=== PATIENT | male | born 1950 | race Asian ===

== ENCOUNTER 2017-07-16 20:59 | Inpatient (IN) | payer OTHER ==
[2017-07-16] MEDS ORDERED: Sodium Chloride 0.9% 1,000 ML IV ONE ×2 (21:20→23:31)
[2017-07-16] MEDS ORDERED: HYDROmorphone 1 mg/mL 1mL Syr IVP STA (21:21)
[2017-07-16] MEDS ORDERED: HYDROmorphone 1 mg/mL 1mL Syr ONE (21:24)
--- NOTE | 2017-07-16 21:27 | ED Physician Chart ---
ED Chief Complaint/HPI - Patient Information Date Seen:: 07/16/17 Time Seen:: 21:10 Chief Complaint:: abdominal pain History of Present Illness:: Patient developed epigastric pain at 10 AM this morning. He is nauseated but had no vomiting. He had one-time watery diarrhea. No chills, fever, dysuria. Allergies:: Allergies Allergy/AdvReac Type Severity Reaction Status Date / Time naproxen Allergy Verified 07/16/17 21:05 Vitals:: Vital Signs - 8 hr 07/16/17 21:00 Temp 98.6 F HR 103 RR 20 BP 155/71 O2 Sat % 100 Historian:: Patient Review:: Nurse's Note Reviewed ED Review of Systems - Review of Systems General/Constitutional: No fever, No chills Skin: No skin lesions Head: No headache Eyes: No loss of vision ENT: No earache Neck: No neck pain Cardio Vascular: No chest pain Pulmonary: No SOB, No cough GI: Nausea, Diarrhea, Pain G/U: No dysuria Musculoskeletal: No bone or joint pain Endocrine: No polyuria Hematopoietic: No bruising Allergic/Immuno: No urticaria Neurological: No syncope ED Past Medical History - Past Medical History Past Medical History: HTN Family History: Diabetes Melitus, HTN Social History: Other (quit smoking 15 years ago; used to drink alcohol but no longer does) Surgical History: None Psychiatricy History: None Medication: Reviewed Family Medical History - Family Member Mother History Unknown: Yes Ethnicity: Non- ED Physical Exam - Physical Examination General/Constitutional: Well-developed, well-nourished, Alert, No distress Head: Atraumatic Eyes: Lids, conjuctiva normal, PERRL Skin: Nl inspection, No rash ENMT: External ears, nose nl, TM canals nl, Nasal exam nl, Lips, teeth, gums nl Neck: No nuchal rigidity Respiratory: Nl effort/Exclusion, Clear to Auscultation Cardio Vascular: RRR, No murmur, gallop, rubs, NL S1 S2 GI: No organomegaly, No hernia, Normal BS's Other GI comments:: Epigastric tenderness Extremities: Normal digits & nails Neuro/Psych: No focal deficits Misc: Normal back ED Labs/Radiology/EKG Results - Lab Results Results: Laboratory Results - last 24 hr 07/16/17 07/16/1718 21:25 21:39 21:39 WBC 4.9 RBC 4.31 Hgb 12.9 Hct 39.0 L MCV 90.4 MCH 30.0 MCHC Differential 33.2 RDW 12.2 Plt Count 160 MPV 7.2 Neutrophils % 88.3 H Lymphocytes % 9.9 L Monocytes % 0.4 L Eosinophils % 0.2 Basophils % 1.2 Sodium 127 L Potassium 3.6 Chloride 98 Carbon Dioxide 21.6 Anion Gap 11.0 BUN 14 Creatinine 0.8 Est GFR ( Amer) > 60.0 Est GFR (Non-Af Amer) > 60.0 BUN/Creatinine Ratio 17.5 Glucose 147 H Calcium 8.2 L Magnesium Lipase 20 Urine Source RANDOM Urine Color YELLOW Urine Clarity CLEAR Urine pH 5.5 Ur Specific [place] >= 1.030 Urine Protein TRACE Urine Glucose (UA) NEGATIVE Urine Ketones NEGATIVE Urine Blood SMALL H Urine Nitrate NEGATIVE Urine Bilirubin NEGATIVE Urine Urobilinogen 0.2 Ur Leukocyte Esterase NEGATIVE Urine RBC 5-10 H Urine WBC NONE SEEN Ur Epithelial Cells NONE SEEN Urine Bacteria NONE SEEN 07/16/17 21:39 WBC RBC Hgb Hct MCV MCH MCHC Differential RDW Plt Count MPV Neutrophils % Lymphocytes % Monocytes % Eosinophils % Basophils % Sodium Potassium Chloride Carbon Dioxide Anion Gap BUN Creatinine Est GFR ( Amer) Est GFR (Non-Af Amer) BUN/Creatinine Ratio Glucose Calcium Magnesium 1.7 L Lipase Urine Source Urine Color Urine Clarity Urine pH Ur Specific [place] Urine Protein Urine Glucose (UA) Urine Ketones Urine Blood Urine Nitrate Urine Bilirubin Urine Urobilinogen Ur Leukocyte Esterase Urine RBC Urine WBC Ur Epithelial Cells Urine Bacteria - Radiology Results Results: CT scan showed severely distended stomach with food content, severely distended cecum, ileus, possible partial small bowel obstruction - EKG Interpretations Rate & Rhythm: normal sinus rhythm with a rate of 99 [place]: normal ED Assessment - Assessment General Assessment: Abdominal pain is now improved; abdominal exam revealed the hyperactive bowel sounds and epigastric tenderness ED Septic Shock - . Is Septic Shock (SBP<90, OR Lactate>4 mmol\L) present?: No - <6hrs of presentation: Vital Signs: Vital Signs - 8 hr 07/16/17 21:00 Temp 98.6 F HR 103 RR 20 BP 155/71 O2 Sat % 100 ED Reassessment (Disposition) - Reassessment Reassessment:: I spoke to Dr. Regalado at about [address] Don Waldron at 2335. Reassessment Condition:: Improved - Diagnosis Diagnosis:: Hyponatremia; hypomagnesemia, possible partial small bowel obstruction - Patient Disposition Admitted to:: Med/Surg Condition at Disposition:: Stable, Improved
[2017-07-16 21:46] LABS: % BASOPHILS 1.2 % (0.0-2.0); % EOSINOPHILS 0.2 % (0.0-5.0); % LYMPHOCYTES 9.9 % (20.0-50.0); % MONOCYTES 0.4 % (2.0-10.0); % NEUTROPHILS 88.3 % (40.0-80.0); BASOPHILE ABSOLUTE 0.1 Th/cumm (0-0.2); HEMOGLOBIN 12.9 gm/dL (12-16); LYMPHOCYTE ABSOLUTE 0.5 Th/cmm (1.5-3.0); MEAN CELL VOLUME 90.4 fl (80-99); MEAN CORPUSCULAR HGB CONC 33.2 pg (28.0-36.0); MEAN PLATELET VOLUME 7.2 fl; NEUTROPHILE ABSOLUTE 4.3 Th/cmm (1.8-8.0); PLATELET COUNT 160 Th/cmm (150-400); RED BLOOD COUNT 4.31 Mil/cmm (4.30-5.70); RED CELL DISTRIBUTION WIDTH 12.2 % (11.5-20.0); WHITE BLOOD COUNT 4.9 Th/cmm (4.8-10.8)
[2017-07-16 22:01] LABS: BUN - UREA NITROGEN 14 mg/dL (7-25); CALCIUM SERUM 8.2 mg/dL (8.6-10.3); CARBON DIOXIDE 21.6 mEq/L (21.0-31.0); CHLORIDE 98 mEq/L (98-107); CREATININE - SERUM 0.8 mg/dL (0.7-1.3); GFR AFRICAN-AMERICAN > 60.0 ml/min (>90); GFR NON AFRICAN-AMERICAN > 60.0 ml/min; GLUCOSE 147 mg/dL (70-105); LIPASE 20 U/L (11-82); POTASSIUM SERUM 3.6 mEq/L (3.5-5.1); SODIUM SERUM 127 mEq/L (136-145)
[2017-07-16 22:20] LABS: URINE MICROSCOPIC INDICATED? YES; URINE SOURCE RANDOM
[2017-07-16 22:23] LABS: URINE BILIRUBIN NEGATIVE (NEGATIVE); URINE BLOOD SMALL (NEGATIVE); URINE CLARITY CLEAR (CLEAR); URINE COLOR YELLOW; URINE GLUCOSE (UA) NEGATIVE (NEGATIVE); URINE KETONE NEGATIVE (NEGATIVE); URINE LEUKOCYTE ESTERASE NEGATIVE (NEGATIVE); URINE NITRATE NEGATIVE (NEGATIVE); URINE PH 5.5 (4.6 - 8.0); URINE PROTEIN TRACE mg/dL (NEGATIVE); URINE UROBILINOGEN 0.2 E.U./dL (0.2 - 1.0)
[2017-07-16 22:25] LABS: URINE BACTERIA NONE SEEN /hpf (NONE SEEN); URINE EPITHELIAL CELLS NONE SEEN /lpf (FEW); URINE WBC NONE SEEN /hpf (0-5)
[2017-07-16] MEDS ORDERED: 0.9% NS w/20 mEq KCL 1,000 ML IV SCH (23:34)
[2017-07-17] MEDS: D5-0.9%NS 1,000 ML IV SCH ×2 (01:12→21:06)
[2017-07-17 01:25] VITALS: BP 133/77
[2017-07-17 06:08] LABS: % BASOPHILS 0.3 % (0.0-2.0); % EOSINOPHILS 0.9 % (0.0-5.0); % LYMPHOCYTES 9.4 % (20.0-50.0); % NEUTROPHILS 85.4 % (40.0-80.0); HEMATOCRIT 37.9 % (41.0-60); HEMOGLOBIN 12.3 gm/dL (12-16); LYMPHOCYTE ABSOLUTE 0.4 Th/cmm (1.5-3.0); MEAN CELL VOLUME 90.1 fl (80-99); MEAN CORPUSCULAR HEMOGLOBIN 29.2 pg (26.0-30.0); MEAN CORPUSCULAR HGB CONC 32.5 pg (28.0-36.0); MEAN PLATELET VOLUME 7.9 fl; MONOCYTE ABSOLUTE 0.2 Th/cmm (0.3-1.0); NEUTROPHILE ABSOLUTE 3.5 Th/cmm (1.8-8.0); PLATELET COUNT 138 Th/cmm (150-400); RED BLOOD COUNT 4.21 Mil/cmm (4.30-5.70); RED CELL DISTRIBUTION WIDTH 12.7 % (11.5-20.0); WHITE BLOOD COUNT 4.1 Th/cmm (4.8-10.8)
[2017-07-17 06:16] LABS: ALB/GLOB RATIO 1.3 (1.0-1.8); ALBUMIN 3.8 gm/dL (4.2-5.5); ALKALINE PHOSPHATASE 48 U/L (34-104); ANION GAP 11.8 (7.0-16.0); BILIRUBIN,TOTAL 0.3 mg/dL (0.3-1.0); BUN - UREA NITROGEN 11 mg/dL (7-25); CALCIUM SERUM 8.2 mg/dL (8.6-10.3); CARBON DIOXIDE 21.9 mEq/L (21.0-31.0); CHLORIDE 101 mEq/L (98-107); CREATININE - SERUM 0.8 mg/dL (0.7-1.3); GFR AFRICAN-AMERICAN > 60.0 ml/min (>90); GFR NON AFRICAN-AMERICAN > 60.0 ml/min; GLUCOSE 139 mg/dL (70-105); POTASSIUM SERUM 3.7 mEq/L (3.5-5.1); SGOT 44 U/L (13-39); SGPT/ALT 41 U/L (7-52); SODIUM SERUM 131 mEq/L (136-145); TOTAL PROTEIN,SERUM 6.7 gm/dL (6.0-8.3)
--- NOTE | 2017-07-17 07:37 | Diagnostic Imaging Report ---
CT scan abdomen and pelvis without intravenous contrast HISTORY: Pain Total DLP equals 1046 CTDI equals 11.9 Axial sections were obtained from the xiphoid process down to the pubic symphysis. The liver exhibits a homogeneous parenchyma. No focal lesions. The spleen appears normal. There is a severely distended/dilated stomach with intraluminal debris. Several mildly dilated loops of small bowel are noted. No definite focal abnormalities seen within the pancreas. The exam of the right kidney demonstrates a 4.0 cm well-circumscribed hypodense lesion consistent with a cyst noted in the medullary region and upper pole. No hydronephrosis. The left kidney appears normal. Mild atherosclerotic calcification noted throughout the abdominal aorta and iliac arteries. There is a rather markedly distended stool-filled cecum and ascending colon (8.5 cm diameter). No definite abnormality seen in the region of the appendix. The pelvis demonstrates preservation of normal fat planes. No abnormal soft tissue masses or abnormal fluid collections. Degenerative changes seen within the spine. IMPRESSION: 1. Pronounced gastric dilatation associated with intraluminal food/debris. Significance should be correlated clinically. 2. Dilated stool-filled cecum and ascending colon with with several mildly dilated loops of small bowel. The findings should be correlated clinically. 3. Right renal cysts 4. Atherosclerotic vascular changes
--- NOTE | 2017-07-17 08:05 | History and Physical ---
History of Present Illness - HPI Chief Complaint: Abdominal Pain HPI: 66 y/o male who presents with epigastric pain pain at 10 AM this morning. He is nauseated but had no vomiting. He had one-time watery diarrhea. No chills, fever, dysuria. Patient states that he had a watery stool one day prior to admission. - Past Medical History Past Medical History: HTN Family History: Diabetes Melitus, HTN Social History: Other (quit smoking 15 years ago; used to drink alcohol but no longer does) Surgical History: None Psychiatricy History: None Medication: Reviewed Patient initial labwork revealed - Lab Results Results: Laboratory Results - last 24 hr 07/16/17 07/16/17 07/16/17 21:25 21:39 21:39 WBC 4.9 RBC 4.31 Hgb 12.9 Hct 39.0 L MCV 90.4 MCH 30.0 MCHC Differential 33.2 RDW 12.2 Plt Count 160 MPV 7.2 Neutrophils % 88.3 H Lymphocytes % 9.9 L Monocytes % 0.4 L Eosinophils % 0.2 Basophils % 1.2 Sodium 127 L Potassium 3.6 Chloride 98 Carbon Dioxide 21.6 Anion Gap 11.0 BUN 14 Creatinine 0.8 Est GFR ( Amer) > 60.0 Est GFR (Non-Af Amer) > 60.0 BUN/Creatinine Ratio 17.5 Glucose 147 H Calcium 8.2 L Magnesium Lipase 20 Urine Source RANDOM Urine Color YELLOW Urine Clarity CLEAR Urine pH 5.5 Ur Specific [place] >= 1.030 Urine Protein TRACE Urine Glucose (UA) NEGATIVE Urine Ketones NEGATIVE Urine Blood SMALL H Urine Nitrate NEGATIVE Urine Bilirubin NEGATIVE Urine Urobilinogen 0.2 Ur Leukocyte Esterase NEGATIVE Urine RBC 5-10 H Urine WBC NONE SEEN Ur Epithelial Cells NONE SEEN Urine Bacteria NONE SEEN 07/16/17 21:39 WBC RBC Hgb Hct MCV MCH MCHC Differential RDW Plt Count MPV Neutrophils % Lymphocytes % Monocytes % Eosinophils % Basophils % Sodium Potassium Chloride Carbon Dioxide Anion Gap BUN Creatinine Est GFR ( Amer) Est GFR (Non-Af Amer) BUN/Creatinine Ratio Glucose Calcium Magnesium 1.7 L Lipase Urine Source Urine Color Urine Clarity Urine pH Ur Specific [place] Urine Protein Urine Glucose (UA) Urine Ketones Urine Blood Urine Nitrate Urine Bilirubin Urine Urobilinogen Ur Leukocyte Esterase Urine RBC Urine WBC Ur Epithelial Cells Urine Bacteria CT scan showed severely distended stomach with food content, severely distended cecum, ileus, possible partial small bowel obstruction Patient subsequently admitted for further evaluation and treatment. Vital Signs: Last Vital Signs Temp 99.1 F 07/17/17 07:54 Pulse 75 07/17/17 07:54 Resp 18 07/17/17 07:54 BP 133/65 07/17/17 07:54 Pulse Ox 96 07/17/17 07:54 Past Medical History Cardiovascular: Report: HTN, Hyperlipidemia Pulmonary: Report: No Pertinent Hx SUPERVISOR DISPLAY FABRICATION: Report: No Pertinent Hx GI: Report: No Pertinent Hx Psych: Report: No Pertinent Hx Musculoskeletal: Report: No Pertinent Hx Rheumatologic: Report: No pertinent Hx Infectious Disease: Report: No Pertinent Hx Renal/: Report: No Pertinent Hx Endocrine: Report: Diabetes Dermatology: Report: No Pertinent Hx - Past Surgical History Past Surgical History: No pertinent Hx Family Medical History - Family Member Mother History Unknown: Yes Ethnicity: Non- Social History Smoke: # pack years (15 packed years) Alcohol: None Drugs: None Lives: Alone - Medications Home Medications: Home Medication Medication Instructions Recorded Type Lisinopril 5 mg PO DAILY 07/16/17 History Simvastatin [Zocor*] 5 mg PO DAILY 07/16/17 History metFORMIN [Glucophage] 500 mg PO BID 07/16/17 History - Allergies Allergies/Adverse Reactions: Allergies Allergy/AdvReac Type Severity Reaction Status Date / Time naproxen Allergy Verified 07/16/17 21:05 Review of Systems - Review of Systems Constitutional: Report: No Significant Eyes: Report: No Significant ENT: Report: No Significant Respiratory: Report: No Significant Cardiovascular: Report: No Significant Gastrointestinal: Report: Nausea, Vomiting, Abdominal Pain Genitourinary: Report: No Significant Musculoskeletal: Report: No Significant Skin: Report: No Significant Neurological: Report: No Significant Physical Exam - Physical Exam HEENT: Report: Ears Nose Throat within normal limits, Pharnyx within normal limits Neck: Report: Within normal limits Cardiovascular Systems: Report: +s1/s2 noted, Regular, Rate and Rhythm Respiratory: Report: Breath Sounds are within normal limits, Clear to Auscultation of lung porter Abdomen: Report: Non-tender to palpation Back: Report: Inspection of back is within normal limits. Extremities: Report: Non-tender to palpation. Skin: Report: Color of skin is within normal limits Neuro/Psych: Report: Mood affect is within normal limits, A+Ox3, CN II-XII intact - Lab Results All Lab Results last 24 hours: Laboratory Results - last 24 hr 07/17/17 07/17/17 07/17/17 05:04 05:04 05:04 WBC 4.1 L RBC 4.21 L Hgb 12.3 Hct 37.9 L MCV 90.1 MCH 29.2 MCHC Differential 32.5 RDW 12.7 Plt Count 138 L MPV 7.9 Neutrophils % 85.4 H Lymphocytes % 9.4 L Monocytes % 4.0 Eosinophils % 0.9 Basophils % 0.3 Sodium 131 L Potassium 3.7 Chloride 101 Carbon Dioxide 21.9 Anion Gap 11.8 BUN 11 Creatinine 0.8 Est GFR ( Amer) > 60.0 Est GFR (Non-Af Amer) > 60.0 BUN/Creatinine Ratio 13.8 Glucose 139 H POC Glucose Calcium 8.2 L Magnesium 2.0 Total Bilirubin 0.3 AST 44 H ALT 41 Alkaline Phosphatase 48 Total Protein 6.7 Albumin 3.8 L Globulin 2.9 Albumin/Globulin Ratio 1.3 07/17/17 05:48 WBC RBC Hgb Hct MCV MCH MCHC Differential RDW Plt Count MPV Neutrophils % Lymphocytes % Monocytes % Eosinophils % Basophils % Sodium Potassium Chloride Carbon Dioxide Anion Gap BUN Creatinine Est GFR ( Amer) Est GFR (Non-Af Amer) BUN/Creatinine Ratio Glucose POC Glucose 130 H Calcium Magnesium Total Bilirubin AST ALT Alkaline Phosphatase Total Protein Albumin Globulin Albumin/Globulin Ratio - Assessment Assessment: abdominal pain SBO DM Hyperlipidemia HTN Hyponatremia Hypomagnesemia - Plan Plan: keep NPO IV fluids GI consult Dr Pratt Surgical Consult Dr. Regalado Continue IV pain meds Zofran IV PRN
[2017-07-17] MEDS ORDERED: HYDROmorphone 1 mg/mL 1mL Syr IVP PRN (08:06)
[2017-07-17] MEDS ORDERED: Diatrizoate Meglumine/Diatri 30 mL Sol PO ONE ×2 (09:04→09:30)
--- NOTE | 2017-07-17 09:05 | General Progress Note ---
Subjective - Review of Systems Service Date: 07/17/17 Events since last encounter: chart reviewed UGI series ordered Objective - Results Result Diagrams: 07/17/17 05:04 07/17/17 05:04 Recent Labs: Laboratory Last Values WBC 4.1 Th/cmm (4.8-10.8) L 07/17/17 05:04 RBC 4.21 Mil/cmm (4.30-5.70) L 07/17/17 05:04 Hgb 12.3 gm/dL (12-16) 07/17/17 05:04 Hct 37.9 % (41.0-60) L 07/17/17 05:04 MCV 90.1 fl (80-99) 07/17/17 05:04 MCH 29.2 pg (26.0-30.0) 07/17/17 05:04 MCHC Differential 32.5 pg (28.0-36.0) 07/17/17 05:04 RDW 12.7 % (11.5-20.0) 07/17/17 05:04 Plt Count 138 Th/cmm (150-400) L 07/17/17 05:04 MPV 7.9 fl 07/17/17 05:04 Neutrophils % 85.4 % (40.0-80.0) H 07/17/17 05:04 Lymphocytes % 9.4 % (20.0-50.0) L 07/17/17 05:04 Monocytes % 4.0 % (2.0-10.0) 07/17/17 05:04 Eosinophils % 0.9 % (0.0-5.0) 07/17/17 05:04 Basophils % 0.3 % (0.0-2.0) 07/17/17 05:04 Sodium 131 mEq/L (136-145) L 07/17/17 05:04 Potassium 3.7 mEq/L (3.5-5.1) 07/17/17 05:04 Chloride 101 mEq/L (98-107) 07/17/17 05:04 Carbon Dioxide 21.9 mEq/L (21.0-31.0) 07/17/17 05:04 Anion Gap 11.8 (7.0-16.0) 07/17/17 05:04 BUN 11 mg/dL (7-25) 07/17/17 05:04 Creatinine 0.8 mg/dL (0.7-1.3) 07/17/17 05:04 Est GFR ( Amer) > 60.0 ml/min (>90) 07/17/17 05:04 Est GFR (Non-Af Amer) > 60.0 ml/min 07/17/17 05:04 BUN/Creatinine Ratio 13.8 07/17/17 05:04 Glucose 139 mg/dL (70-105) H 07/17/17 05:04 POC Glucose 130 MG/DL (70 - 105) H 07/17/17 05:48 Calcium 8.2 mg/dL (8.6-10.3) L 07/17/17 05:04 Magnesium 2.0 mg/dL (1.9-2.7) 07/17/17 05:04 Total Bilirubin 0.3 mg/dL (0.3-1.0) 07/17/17 05:04 AST 44 U/L (13-39) H 07/17/17 05:04 ALT 41 U/L (7-52) 07/17/17 05:04 Alkaline Phosphatase 48 U/L (34-104) 07/17/17 05:04 Total Protein 6.7 gm/dL (6.0-8.3) 07/17/17 05:04 Albumin 3.8 gm/dL (4.2-5.5) L 07/17/17 05:04 Globulin 2.9 gm/dL 07/17/17 05:04 Albumin/Globulin Ratio 1.3 (1.0-1.8) 07/17/17 05:04 Lipase 20 U/L (11-82) 07/16/17 21:39 Urine Source RANDOM 07/16/17 21:25 Urine Color YELLOW 07/16/17 21:25 Urine Clarity CLEAR (CLEAR) 07/16/17 21:25 Urine pH 5.5 (4.6 - 8.0) 07/16/17 21:25 Ur Specific [place] >= 1.030 (1.005-1.030) 07/16/17 21:25 Urine Protein TRACE mg/dL (NEGATIVE) 07/16/17 21:25 Urine Glucose (UA) NEGATIVE mg/dL (NEGATIVE) 07/16/17 21:25 Urine Ketones NEGATIVE mg/dL (NEGATIVE) 07/16/17 21:25 Urine Blood SMALL (NEGATIVE) H 07/16/17 21:25 Urine Nitrate NEGATIVE (NEGATIVE) 07/16/17 21:25 Urine Bilirubin NEGATIVE (NEGATIVE) 07/16/17 21:25 Urine Urobilinogen 0.2 E.U./dL (0.2 - 1.0) 07/16/17 21:25 Ur Leukocyte Esterase NEGATIVE (NEGATIVE) 07/16/17 21:25 Urine RBC 5-10 /hpf (0-5) H 07/16/17 21:25 Urine WBC NONE SEEN /hpf (0-5) 07/16/17 21:25 Ur Epithelial Cells NONE SEEN /lpf (FEW) 07/16/17 21:25 Urine Bacteria NONE SEEN /hpf (NONE SEEN) 07/16/17 21:25 - Physical Exam Vitals and I&O: Vital Signs Temp 99.1 F 07/17/17 07:54 Pulse 75 07/17/17 07:54 Resp 18 07/17/17 07:54 BP 133/65 07/17/17 07:54 Pulse Ox 96 07/17/17 07:54 Intake & Output 07/16/17 07/17/17 07/17/17 18:59 06:59 18:59 Weight (lbs) 83.149 kg Other: # Voids 2 Weight Source Bedscale Active Medications: Current Medications Enalaprilat (Vasotec) 1.25 mg IVP Q6HR [facility] Stop: 09/15/17 11:59 Hydromorphone HCl (Dilaudid) 1 mg IVP Q4HR PRN PRN Reason: Abdominal Pain Stop: 09/15/17 08:05 Dextrose/Sodium Chloride (D5-0.9%Ns) 1,000 mls @ 70 mls/hr IV .[id number] [facility] Stop: 09/15/17 01:05 Last Admin: 07/17/17 01:12 Dose: 70 mls/hr Insulin Aspart (Novolog Insulin Sliding Scale) 0 units SUBQ ACHS ROSITA PRN Reason: Protocol Stop: 09/15/17 07:29 Ondansetron HCl (Zofran) 4 mg IV Q6H PRN PRN Reason: Nausea / Vomiting Stop: 09/15/17 08:05
[2017-07-17] MEDS: INSULIN ASPART SLIDING SCALE 100 UNITS/ML UNIT SUBQ SCH ×4 (09:55→21:12)
--- NOTE | 2017-07-17 11:47 | Diagnostic Imaging Report ---
Small bowel follow-through HISTORY: Abdominal distention, pain Water-soluble contrast passed freely from the stomach into the small bowel. There is a normal small bowel caliber and mucosal fold pattern. No focal abnormalities. There is normal transit of contrast from the small bowel into the colon. No evidence of any extrinsic masses. IMPRESSION: Negative examination. No evidence of obstruction.
--- NOTE | 2017-07-17 13:01 | Diagnostic Imaging Report ---
Upper GI series HISTORY: Pain, abdominal distention The exam of the thoracic esophagus demonstrates a normal caliber. No intraluminal filling defects are seen. No hiatal hernia identified. The stomach exhibits a normal contour. Views are limited due to difficulty in patient positioning and mobility. No definite focal abnormalities. There is free flow of contrast from the stomach into the small bowel. IMPRESSION: 1. Negative examination
--- NOTE | 2017-07-17 22:46 | Consultation ---
DATE OF CONSULTATION: 07/17/2017 REASON FOR CONSULTATION: Abdominal pain, nausea, vomiting, diarrhea. HISTORY OF PRESENT ILLNESS: This consult was obtained through the courtesy of Dr. Waldron for this 66-year-old with diabetes, hypertension and hyperlipidemia, admitted to the hospital for abdominal pain, nausea and vomiting. When he came, he had a CAT scan, which showed distended abdomen, possible obstruction and some debris in the stomach. He had an upper GI, which is negative and then had small-bowel follow-through, negative. Now, feels a little bit better, but the pain still comes and goes. He is having still several bowel movements, but this is following the small bowel x-rays. The patient denies any weight loss. No bleeding. PAST MEDICAL HISTORY: Diabetes, hypertension and hyperlipidemia. PAST SURGICAL HISTORY: Negative. SOCIAL HISTORY: Ex-smoker, quit years ago, ex-alcoholic, non-IV drug abuser. FAMILY HISTORY: Noncontributory. ALLERGIES: NAPROSYN. MEDICATIONS: The patient is started on Vasotec, Dilaudid, NovoLog and Zofran. REVIEW OF SYSTEMS: No weight loss. He has diarrhea. No constipation. He has abdominal pain. No bleeding. He has not had ever endoscopy or colonoscopy. PHYSICAL EXAMINATION: GENERAL: The patient is awake, oriented to self, place, and time, in mild distress. VITAL SIGNS: Blood pressure is 119/62, heart rate 76, respiratory rate 18 and temperature is 98.5. HEAD AND NECK: Pupils reactive to light. Extraocular muscles intact. Sclerae are anicteric. Conjunctivae not pale. Oral cavity, no lesion. NECK: Supple. No jugular venous distention, no carotid lymph node. CHEST: Good respiratory movements. LUNGS: Clear to auscultation. CARDIOVASCULAR SYSTEM: Regular rate and rhythm. No murmur or gallop. ABDOMEN: Soft, positive bowel sounds. Diffusely tender. EXTREMITIES: Lower extremities, no edema. CENTRAL NERVOUS SYSTEM: Nonfocal. LABORATORY DATA: White count 4.1, H and H are 12.3 and 37.9 with platelets of 138, AST is 44. Rest of liver enzymes normal. Albumin is 3.8. UA has small amount of blood and 5-10 rbc's. IMPRESSION: A 66-year-old with abdominal pain and diarrhea. ASSESSMENT AND PLAN: Abdominal pain and diarrhea, most probably resolving enteritis, but on the other hand, if this is not improving, then it could reflect colitis, ongoing enteritis, etc. RECOMMENDATIONS: 1. Continue current management. 2. Recheck labs in the morning and reevaluate in the morning. 3. If the patient is improving, then okay to discharge home, but if not, then we will do EGD and colon on Saturday. Other medical problems such as diabetes, hypertension, hyperlipidemia as per Dr. Waldron. Thank you Dr. Waldron for allowing me to participate in the care of the patient. If you have any further questions, please let me know. JOB# [id number]
--- NOTE | 2017-07-18 03:35 | Consultation ---
DATE OF CONSULTATION: 07/17/2017 SURGICAL CONSULT REFERRING PHYSICIAN: Dr. Waldron. REASON FOR CONSULTATION: Abdominal pain. Thank you for referring this patient to me. HISTORY OF PRESENT ILLNESS: This is a 66-year-old male, who came into the Emergency Room because of severe pain at 10 a.m. on the day of admission. He had nausea, but no vomiting. He denied fever, chills, dysuria. He had diarrhea x 1. Past history includes hypertension, diabetes mellitus. He quit smoking 15 years ago. LABORATORY STUDIES: Shows CBC to be normal. Chemistry: Blood sugar is 147. He underwent CT scan of the abdomen, which showed marked dilatation of the stomach with dilated cecum and ascending colon. PHYSICAL EXAMINATION: GENERAL: The patient is alert and awake. ABDOMEN: Flat and soft. The patient refused NG tube, although the abdomen does not appear distended at this point. Peristalsis decreased. Tenderness is mostly in the epigastric area. No rebound. IMPRESSION: 1. Possible gastric outlet obstruction. 2. Possible bowel obstruction. PLAN: Upper GI and small bowel follow through with Gastrografin was ordered. JOB# [id number]
[2017-07-18 05:01] LABS: MANUAL DIFF REQUIRED? YES; WHITE BLOOD COUNT 4.4 Th/cmm (4.8-10.8)
[2017-07-18 05:12] LABS: HEMATOCRIT 39.7 % (41.0-60); HEMOGLOBIN 13.2 gm/dL (12-16); MEAN CELL VOLUME 90.4 fl (80-99); MEAN CORPUSCULAR HGB CONC 33.2 pg (28.0-36.0); MEAN PLATELET VOLUME 7.8 fl; PLATELET COUNT 160 Th/cmm (150-400); RED BLOOD COUNT 4.38 Mil/cmm (4.30-5.70); RED CELL DISTRIBUTION WIDTH 12.7 % (11.5-20.0)
[2017-07-18 06:06] LABS: ALB/GLOB RATIO 1.3 (1.0-1.8); ALBUMIN 3.9 gm/dL (4.2-5.5); ALKALINE PHOSPHATASE 46 U/L (34-104); ANION GAP 10.3 (7.0-16.0); BILIRUBIN,TOTAL 0.3 mg/dL (0.3-1.0); BUN - UREA NITROGEN 10 mg/dL (7-25); CALCIUM SERUM 8.6 mg/dL (8.6-10.3); CARBON DIOXIDE 24.6 mEq/L (21.0-31.0); CHLORIDE 105 mEq/L (98-107); CREATININE - SERUM 0.9 mg/dL (0.7-1.3); GFR AFRICAN-AMERICAN > 60.0 ml/min (>90); GFR NON AFRICAN-AMERICAN > 60.0 ml/min; GLUCOSE 108 mg/dL (70-105); LIPASE 37 U/L (11-82); POTASSIUM SERUM 3.9 mEq/L (3.5-5.1); SGOT 87 U/L (13-39); SGPT/ALT 129 U/L (7-52); SODIUM SERUM 136 mEq/L (136-145); TOTAL PROTEIN,SERUM 6.8 gm/dL (6.0-8.3)
[2017-07-18 06:15] LABS: EOSINOPHIL 23 % (0-5); LYMPHOCYTE 61 % (20-50); NEUTROPHILS 16 % (40-80); PLATELET ESTIMATE ADEQUATE (NORMAL); TOTAL CELLS COUNTED 100
[2017-07-18] MEDS: INSULIN ASPART SLIDING SCALE 100 UNITS/ML UNIT SUBQ SCH ×3 (08:00→16:27)
[2017-07-18] MEDS: D5-0.9%NS 1,000 ML IV SCH (13:10)
--- NOTE | 2017-07-22 18:21 | Discharge Summary ---
DATE OF DISCHARGE: 07/18/2017 PRELIMINARY DIAGNOSES: 1. Abdominal pain. 2. Small-bowel obstruction. 3. Diabetes mellitus. 4. Hyperlipidemia. 5. Hypertension. 6. Hyponatremia. 7. Hypomagnesemia. DISCHARGE DIAGNOSES: 1. Abdominal pain, now resolved. 2. Small-bowel obstruction, resolved. 3. Diabetes mellitus. 4. Hyperlipidemia. 5. Hypertension. 6. Hyponatremia, now resolved. 7. Hypomagnesemia, now resolved. BRIEF HISTORY OF PRESENT ILLNESS: This is a 66-year-old male who presents to [facility] ER with epigastric abdominal pain, which started early this morning. On day of discharge, the patient complained of nausea, but no vomiting. He has had one watery stool. No chills, fevers, or dysuria. He states that he has a history of hypertension, diabetes, hyperlipidemia. While in the ER, he had a CT of his abdomen, which revealed a severely distended stomach with food content and severely distended cecum and ileus, possible small-bowel obstruction. HOSPITAL COURSE: The patient improved during his hospital stay, was kept n.p.o., was seen and evaluated by GI, see dictated report, was also seen by General Surgery, see dictated report. The patient did undergo upper GI series as well as a small bowel follow through. Please see dictated report. The patient was subsequently discharged in stable condition, was to follow up with his regular physician in 2-3 days. [facility]# [id number]
== END 2017-07-18 20:30 | disposition home or self-care (01) | DRG 254 ==
LOC: ER 20:59 → MSI 23:40
PROVIDERS: ADMIT Family Medicine; ATTEND Family Medicine
DX: K31.1 Adult hypertrophic pyloric stenosis (principal); K56.609 Unspecified intestinal obstruction, unspecified as to partial versus complete obstruction; E83.42 Hypomagnesemia; E87.1 Hypo-osmolality and hyponatremia; K31.89 Other diseases of stomach and duodenum; E11.9 Type 2 diabetes mellitus without complications; E78.5 Hyperlipidemia, unspecified; I10 Essential (primary) hypertension; Z87.891 Personal history of nicotine dependence; Z83.3 Family history of diabetes mellitus; Z82.49 Family history of ischemic heart disease and other diseases of the circulatory system
CPT/HCPCS: 36415-UA; 74250-TC; 80048-TC; 80053-TC; 80076-TC; 81001-TC; 82948-90; 83690-TC; 83735-TC; 85007-TC; 85025-TC; 85027-TC; 93005; 96374; 96375; J1170; J1815; J2405; J7030; J7042